=== PATIENT | male | born 1945 | race Caucasian/White ===

== ENCOUNTER 2016-10-07 19:37 | Inpatient (IN) | payer OTHER, MEDICAID ==
[~2016-10-07] VITALS: Ht 188 cm; Wt 94.8 kg
[2016-10-07 19:38] VITALS: BP_SYST 166
[2016-10-07] MEDS ORDERED: NACL 0.9% 1,000 ML IV ONE (20:03)
[2016-10-07] MEDS ORDERED: ONDANSETRON HCL 4 MG/2 ML VIAL IVP ONE (20:15)
[2016-10-07] MEDS ORDERED: ACETAMINOPHEN 650 MG SUPP.RECT RC ONE (20:15)
[2016-10-07] MEDS ORDERED: VANCOMYCIN HCL 1,000 MG in D5W 250 ML IV ONE (20:15)
[2016-10-07] MEDS ORDERED: PIPERACILLIN/TAZO 3.38 GM in D5W 50 ML IV ONE (20:15)
[2016-10-07] MEDS ORDERED: PIPERACILLIN/TAZOBACTAM 3.375 GM/VIAL (ZOSYN) IV ONE (20:25)
[2016-10-07] MEDS ORDERED: VANCOMYCIN HCL 1000 MG/VIAL IV ONE (20:26)
[2016-10-07 20:30] LABS: BILIRUBIN,URINE NEGATIVE (NEGATIVE); BLOOD, URINE NEGATIVE (NEGATIVE); CLARITY/URINE CLEAR (CLEAR); GLUCOSE,URINE NEGATIVE (NEGATIVE); KETONES,URINE NEGATIVE (NEGATIVE); LEUKOCYTE ESTERASE ,URINE NEGATIVE (NEGATIVE); NITRITE, URINE NEGATIVE (NEGATIVE); PH,URINE 5.5 (5.0-8.0); PROTEIN URINE TRACE (NEGATIVE); UROBILINOGEN,URINE 0.2 (0.2-1.0)
[2016-10-07 20:34] LABS: BASOPHILS # (AUTO) 0.3 K/uL (0.0-0.2); BASOPHILS % (AUTO) 1.6 % (0.0-2.0); EOSINOPHILS % (AUTO) 0.1 % (0.0-4.0); HEMATOCRIT 49.6 % (36-54); LYMPHOCYTES % (AUTO) 5.8 % (20.5-51.5); MEAN CORPUSCULAR HEMOGLOBIN 30 pg (27-31); MEAN CORPUSCULAR HGB CONC 32 % (32-36); MEAN CORPUSCULAR VOLUME 94 fL (79.0-98.0); MONOCYTES # (AUTO) 0.7 K/uL (0.0-1.0); MONOCYTES % (AUTO) 4.3 % (1.7-9.3); NEUTROPHILS # (AUTO) 14.8 K/uL (1.8-7.7); NEUTROPHILS % (AUTO) 88.2 % (40.0-70.0); PLATELET COUNT (AUTO) 326 K/uL (130-430); RED BLOOD CELL COUNT(AUTO) 5.29 MIL/uL (4.2-6.2); RED CELL DISTRIBUTION WIDTH 12.9 % (9.0-15.0); WHITE BLOOD COUNT (AUTO) 16.8 K/uL (4.8-10.8)
[2016-10-07 20:35] LABS: ANION GAP 9 (5-15); CALCIUM 10.4 mg/dL (8.4-11.0); CHLORIDE 103 mmol/L (98-107); CREATININE 0.85 mg/dL (0.55-1.30); GLUCOSE 173 mg/dL (70-99); POTASSIUM 3.5 mmol/L (3.5-5.1); SODIUM SERUM 139 mmol/L (136-145); UREA NITROGEN, BLOOD 30 mg/dL (8-21)
[2016-10-07 20:36] LABS: COLOR,URINE YELLOW (YELLOW)
[2016-10-07 20:39] LABS: ALANINE AMINOTRANSFERASE 33 U/L (12-78); ALBUMIN 3.5 g/dL (3.4-4.8); ASPARTATE AMINOTRANSFERASE 21 U/L (10-37); LIPASE 161 U/L (73-393); TOTAL BILIRUBIN 0.7 mg/dL (0.0-1.0); TOTAL PROTEIN, SERUM 7.7 g/dL (6.4-8.3)
[2016-10-07 20:44] LABS: INR 1.1 (0.80-1.20); PROTHROMBIN TIME 12.1 SECS (9.5-12.5)
[2016-10-07] MEDS ORDERED: TRAM50TA92 PO (20:58)
[2016-10-07] MEDS ORDERED: MAG-55 PO (20:58)
[2016-10-07] MEDS ORDERED: LORA1TAB PO (20:58)
[2016-10-07] MEDS ORDERED: MAGN400O4 PO (20:58)
[2016-10-07] MEDS ORDERED: HYDR-4037 PO (20:58)
[2016-10-07] MEDS ORDERED: DONE10TA44 PO (20:58)
[2016-10-07] MEDS ORDERED: RIVA10TA PO (20:58)
[2016-10-07] MEDS ORDERED: POTA20TA83 PO (20:58)
[2016-10-07] MEDS ORDERED: DOCU100T10 PO (20:58)
[2016-10-07] MEDS ORDERED: CAT.1 PO (20:58)
[2016-10-07] MEDS ORDERED: RISP0.5T2 PO (20:58)
[2016-10-07] MEDS ORDERED: INSU100V11 SQ (20:58)
[2016-10-07] MEDS ORDERED: MULT-1189 PO (20:58)
[2016-10-07] MEDS ORDERED: DILT360C30 PO (20:58)
[2016-10-07] MEDS ORDERED: SSNOVOLOG SUBCUT (20:58)
[2016-10-07] MEDS ORDERED: LISI-600 PO (20:58)
[2016-10-07] MEDS ORDERED: CARV12.548 PO (20:58)
[2016-10-07] MEDS ORDERED: GLU850 PO (20:58)
[2016-10-07 21:07] LABS: BACTERIA,URINE MANY /HPF (None Seen); HYALINE CASTS, URINE 0-10 /LPF (None Seen); MUCUS,URINE None Seen /LPF (None Seen); RBC,URINE NONE SEEN /HPF (0-3); WBC,URINE 0-3 /HPF (0-3)
[2016-10-07] MEDS ORDERED: ONDANSETRON HCL 4 MG/2 ML VIAL IVP PRN (22:15)
[2016-10-08] VITALS (7 sets, daily range): BP systolic 90–134
[2016-10-08] MEDS: D5NS 1,000 ML IV SCH ×2 (05:21→12:49)
[2016-10-08 07:06] LABS: BASOPHILS # (AUTO) 0.1 K/uL (0.0-0.2); BASOPHILS % (AUTO) 0.4 % (0.0-2.0); EOSINOPHILS % (AUTO) 0.1 % (0.0-4.0); HEMATOCRIT 40.3 % (36-54); HEMOGLOBIN 13.3 g/dL (14.0-18.0); LYMPHOCYTES # (AUTO) 1.2 K/uL (1.0-5.5); MEAN CORPUSCULAR HEMOGLOBIN 31 pg (27-31); MEAN CORPUSCULAR HGB CONC 33 % (32-36); MEAN CORPUSCULAR VOLUME 94 fL (79.0-98.0); MONOCYTES # (AUTO) 0.8 K/uL (0.0-1.0); MONOCYTES % (AUTO) 6.5 % (1.7-9.3); NEUTROPHILS # (AUTO) 10.9 K/uL (1.8-7.7); PLATELET COUNT (AUTO) 289 K/uL (130-430)
[2016-10-08 07:13] LABS: ANION GAP 9 (5-15); CALCIUM 9.6 mg/dL (8.4-11.0); CHLORIDE 105 mmol/L (98-107); CREATININE 1.39 mg/dL (0.55-1.30); GLUCOSE 144 mg/dL (70-99); POTASSIUM 3.3 mmol/L (3.5-5.1); SODIUM SERUM 140 mmol/L (136-145); UREA NITROGEN, BLOOD 36 mg/dL (8-21)
[2016-10-08] MEDS ORDERED: DEXTROSE 50%-WATER 50 ML DISP.SYRIN IVP PRN ×2 (08:15)
[2016-10-08] MEDS ORDERED: GLUCOSE 15 GM GEL (in 37.5 GM TUBE) PO PRN ×2 (08:15)
[2016-10-08] MEDS: cefTRIAXone 1 GM in D5W 50 ML IV SCH (09:00)
[2016-10-08] MEDS ORDERED: POTASSIUM CHLORIDE 40 MEQ, LIDOCAINE JECT 2% PF 100 MG 50 MG in NS 250 ML IV ONE (09:15)
[2016-10-08] MEDS ORDERED: MAGNESIUM SULFATE 50 ML IV PRN (09:30)
[2016-10-08] MEDS ORDERED: ACETAMINOPHEN 325 MG TABLET PO PRN (09:30)
[2016-10-08] MEDS ORDERED: POTASSIUM CHLORIDE 10 MEQ TAB.PRT.SR PO PRN (09:30)
[2016-10-08] MEDS ORDERED: ZOLPIDEM TARTRATE 5 MG TABLET PO PRN (09:30)
[2016-10-08] MEDS ORDERED: DOCUSATE SODIUM 100 MG CAPSULE PO PRN (09:30)
[2016-10-08] MEDS ORDERED: MORPHINE 2 MG/ML INJ. SYRINGE IVP PRN (09:30)
[2016-10-08] MEDS ORDERED: GASTROGRAFIN 120 ML ONE (12:49)
[2016-10-08] MEDS: metroNIDAZOLE 500 mg/NS 100 ML IV SCH ×2 (14:00→21:35)
[2016-10-09] VITALS (7 sets, daily range): BP systolic 124–166
[2016-10-09] MEDS: D5NS 1,000 ML IV SCH ×2 (04:40→21:35)
[2016-10-09] MEDS: metroNIDAZOLE 500 mg/NS 100 ML IV SCH ×3 (05:20→21:41)
[2016-10-09 08:00] LABS: BASOPHILS % (AUTO) 0.3 % (0.0-2.0); EOSINOPHILS # (AUTO) 0.1 K/uL (0.0-0.4); EOSINOPHILS % (AUTO) 1.2 % (0.0-4.0); HEMATOCRIT 40.1 % (36-54); HEMOGLOBIN 13.3 g/dL (14.0-18.0); LYMPHOCYTES % (AUTO) 9.5 % (20.5-51.5); MEAN CORPUSCULAR HEMOGLOBIN 31 pg (27-31); MEAN CORPUSCULAR HGB CONC 33 % (32-36); MEAN CORPUSCULAR VOLUME 94 fL (79.0-98.0); MONOCYTES # (AUTO) 0.7 K/uL (0.0-1.0); MONOCYTES % (AUTO) 6.8 % (1.7-9.3); NEUTROPHILS # (AUTO) 9.1 K/uL (1.8-7.7); NEUTROPHILS % (AUTO) 82.2 % (40.0-70.0); PLATELET COUNT (AUTO) 232 K/uL (130-430); RED BLOOD CELL COUNT(AUTO) 4.29 MIL/uL (4.2-6.2); RED CELL DISTRIBUTION WIDTH 12.9 % (9.0-15.0); WHITE BLOOD COUNT (AUTO) 10.9 K/uL (4.8-10.8)
[2016-10-09 08:15] LABS: ANION GAP 6 (5-15); CALCIUM 8.8 mg/dL (8.4-11.0); CHLORIDE 114 mmol/L (98-107); CREATININE 0.86 mg/dL (0.55-1.30); GLUCOSE 144 mg/dL (70-99); SODIUM SERUM 148 mmol/L (136-145); UREA NITROGEN, BLOOD 26 mg/dL (8-21)
[2016-10-09 08:23] LABS: POTASSIUM 2.5 mmol/L (3.5-5.1)
[2016-10-09] MEDS ORDERED: POTASSIUM CHLORIDE 40 MEQ, LIDOCAINE JECT 2% PF 100 MG 50 MG in NS 250 ML IV ONE ×2 (08:30→14:00)
[2016-10-09] MEDS: cefTRIAXone 1 GM in D5W 50 ML IV SCH (08:42)
[2016-10-09] MEDS: POTASSIUM CHLORIDE 20 MEQ/PKT PACKET PO PRN (08:43)
[2016-10-09] MEDS ORDERED: GOLYTELY / COLYTE SOLUTION 4 LITERS NG ONE (18:00)
[2016-10-09] MEDS ORDERED: MAGNESIUM CITRATE 300 ML ORAL SOLUTION NG ONE (19:00)
[2016-10-09] MEDS: METOPROLOL TARTRATE 50 MG TABLET PO SCH (21:38)
[2016-10-10 04:16] VITALS: BP_SYST 133
[2016-10-10] MEDS: metroNIDAZOLE 500 mg/NS 100 ML IV SCH ×3 (06:02→22:11)
[2016-10-10 06:23] LABS: BASOPHILS % (AUTO) 0.2 % (0.0-2.0); EOSINOPHILS # (AUTO) 0.1 K/uL (0.0-0.4); EOSINOPHILS % (AUTO) 0.6 % (0.0-4.0); HEMATOCRIT 42.5 % (36-54); HEMOGLOBIN 13.7 g/dL (14.0-18.0); MEAN CORPUSCULAR HEMOGLOBIN 31 pg (27-31); MEAN CORPUSCULAR HGB CONC 32 % (32-36); MEAN CORPUSCULAR VOLUME 95 fL (79.0-98.0); MONOCYTES # (AUTO) 0.8 K/uL (0.0-1.0); MONOCYTES % (AUTO) 7.5 % (1.7-9.3); NEUTROPHILS # (AUTO) 9.3 K/uL (1.8-7.7); NEUTROPHILS % (AUTO) 82.7 % (40.0-70.0); PLATELET COUNT (AUTO) 267 K/uL (130-430); RED BLOOD CELL COUNT(AUTO) 4.46 MIL/uL (4.2-6.2); WHITE BLOOD COUNT (AUTO) 11.2 K/uL (4.8-10.8)
[2016-10-10 06:24] LABS: ANION GAP 3 (5-15); CALCIUM 9.1 mg/dL (8.4-11.0); CREATININE 0.93 mg/dL (0.55-1.30); GLUCOSE 162 mg/dL (70-99); SODIUM SERUM 152 mmol/L (136-145); UREA NITROGEN, BLOOD 19 mg/dL (8-21)
[2016-10-10] MEDS ORDERED: MIDAZOLAM HCL 5 MG/5 ML VIAL ONE ×2 (06:35→06:36)
[2016-10-10] MEDS ORDERED: MEPERIDINE HCL/PF 100 MG/ML AMP ONE (06:35)
[2016-10-10] MEDS ORDERED: SIMETHICONE 40 MG/0.6 ML ML ONE (06:36)
[2016-10-10 06:43] LABS: CHLORIDE 120 mmol/L (98-107)
[2016-10-10 06:45] LABS: POTASSIUM 2.9 mmol/L (3.5-5.1)
[2016-10-10] MEDS ORDERED: POTASSIUM CHLORIDE 40 MEQ in 0.45% NS 250 ML IV ONE (07:00)
[2016-10-10] MEDS: D5NS 1,000 ML IV SCH ×2 (08:06→22:03)
[2016-10-10] MEDS: cefTRIAXone 1 GM in D5W 50 ML IV SCH (08:06)
[2016-10-10] MEDS: METOPROLOL TARTRATE 50 MG TABLET PO SCH ×2 (08:07→22:12)
[2016-10-10 08:10] VITALS: BP_SYST 176
[2016-10-10] MEDS ORDERED: MEPERIDINE HCL/PF 100 MG/ML AMP IV ONE (08:24)
[2016-10-10] MEDS ORDERED: MIDAZOLAM HCL 5 MG/5 ML VIAL IVP ONE (08:26)
[2016-10-10 09:40] VITALS: BP_SYST 145
[2016-10-10 12:44] VITALS: BP_SYST 157
[2016-10-10] MEDS: METOCLOPRAMIDE HCL 10 MG/2 ML VIAL IVP SCH ×2 (13:23→22:12)
[2016-10-10 16:20] VITALS: BP_SYST 160
[2016-10-10] MEDS ORDERED: cloNIDine HCL 0.1 MG TABLET PO PRN (16:30)
[2016-10-10] MEDS: INSULIN REGULAR, HUMAN 100 UNITS/ML, 10 ML VIAL (novoLIN R) SUBCUT PRN (17:20)
[2016-10-10 21:57] VITALS: BP_SYST 157
[2016-10-11 00:34] VITALS: BP_SYST 146
[2016-10-11] MEDS: INSULIN REGULAR, HUMAN 100 UNITS/ML, 10 ML VIAL (novoLIN R) SUBCUT PRN ×2 (01:12→11:45)
[2016-10-11 04:48] VITALS: BP_SYST 122
[2016-10-11 04:51] VITALS: BP_SYST 141
[2016-10-11] MEDS: metroNIDAZOLE 500 mg/NS 100 ML IV SCH ×3 (05:46→22:25)
[2016-10-11] MEDS: METOCLOPRAMIDE HCL 10 MG/2 ML VIAL IVP SCH ×3 (05:51→22:25)
[2016-10-11 07:18] LABS: BASOPHILS # (AUTO) 0.1 K/uL (0.0-0.2); BASOPHILS % (AUTO) 0.5 % (0.0-2.0); EOSINOPHILS % (AUTO) 0.2 % (0.0-4.0); HEMOGLOBIN 13.2 g/dL (14.0-18.0); LYMPHOCYTES % (AUTO) 8.7 % (20.5-51.5); MEAN CORPUSCULAR HEMOGLOBIN 31 pg (27-31); MEAN CORPUSCULAR HGB CONC 33 % (32-36); MEAN CORPUSCULAR VOLUME 94 fL (79.0-98.0); MONOCYTES % (AUTO) 8.4 % (1.7-9.3); NEUTROPHILS # (AUTO) 9.5 K/uL (1.8-7.7); NEUTROPHILS % (AUTO) 82.2 % (40.0-70.0); PLATELET COUNT (AUTO) 239 K/uL (130-430); RED BLOOD CELL COUNT(AUTO) 4.25 MIL/uL (4.2-6.2); RED CELL DISTRIBUTION WIDTH 13.1 % (9.0-15.0); WHITE BLOOD COUNT (AUTO) 11.6 K/uL (4.8-10.8)
[2016-10-11 07:41] LABS: ANION GAP 6 (5-15); CALCIUM 9.1 mg/dL (8.4-11.0); CREATININE 0.83 mg/dL (0.55-1.30); GLUCOSE 117 mg/dL (70-99); SODIUM SERUM 151 mmol/L (136-145); UREA NITROGEN, BLOOD 17 mg/dL (8-21)
[2016-10-11 08:06] LABS: CHLORIDE 120 mmol/L (98-107)
[2016-10-11 08:09] LABS: POTASSIUM 2.6 mmol/L (3.5-5.1)
[2016-10-11] MEDS: POTASSIUM CHLORIDE 40 MEQ in NS 250 ML IV SCH ×2 (10:51→16:09)
[2016-10-11] MEDS: cefTRIAXone 1 GM in D5W 50 ML IV SCH (10:51)
[2016-10-11] MEDS: METOPROLOL TARTRATE 50 MG TABLET PO SCH ×2 (10:53→22:24)
[2016-10-11] MEDS: D5/0.45 NS 1,000 ML IV SCH (10:54)
[2016-10-11 11:50] VITALS: BP_SYST 165
[2016-10-11] MEDS: ONDANSETRON HCL 4 MG/2 ML VIAL IVP PRN (12:37)
[2016-10-11 15:54] VITALS: BP_SYST 166
[2016-10-11 20:00] VITALS: BP_SYST 137
[2016-10-11] MEDS: POLYETHYLENE GLYCOL 3350, 17 GM/ POWD.PACK PO SCH (22:25)
[2016-10-12] VITALS (7 sets, daily range): BP systolic 106–147
[2016-10-12] MEDS: INSULIN REGULAR, HUMAN 100 UNITS/ML, 10 ML VIAL (novoLIN R) SUBCUT PRN ×3 (00:34→17:19)
[2016-10-12] MEDS: D5/0.45 NS 1,000 ML IV SCH ×2 (03:08→18:55)
[2016-10-12 06:04] LABS: ANION GAP 7 (5-15); CHLORIDE 115 mmol/L (98-107); CREATININE 0.77 mg/dL (0.55-1.30); GLUCOSE 132 mg/dL (70-99); SODIUM SERUM 147 mmol/L (136-145); UREA NITROGEN, BLOOD 13 mg/dL (8-21)
[2016-10-12] MEDS: METOCLOPRAMIDE HCL 10 MG/2 ML VIAL IVP SCH ×3 (06:23→17:19)
[2016-10-12] MEDS: metroNIDAZOLE 500 mg/NS 100 ML IV SCH ×3 (06:23→21:35)
[2016-10-12 07:12] LABS: BASOPHILS # (AUTO) 0.1 K/uL (0.0-0.2); BASOPHILS % (AUTO) 0.6 % (0.0-2.0); EOSINOPHILS # (AUTO) 0.2 K/uL (0.0-0.4); EOSINOPHILS % (AUTO) 1.8 % (0.0-4.0); HEMOGLOBIN 13.3 g/dL (14.0-18.0); LYMPHOCYTES # (AUTO) 1.5 K/uL (1.0-5.5); LYMPHOCYTES % (AUTO) 12.8 % (20.5-51.5); MEAN CORPUSCULAR HEMOGLOBIN 31 pg (27-31); MEAN CORPUSCULAR HGB CONC 33 % (32-36); MEAN CORPUSCULAR VOLUME 94 fL (79.0-98.0); MONOCYTES # (AUTO) 0.8 K/uL (0.0-1.0); NEUTROPHILS # (AUTO) 9.2 K/uL (1.8-7.7); NEUTROPHILS % (AUTO) 77.8 % (40.0-70.0); RED BLOOD CELL COUNT(AUTO) 4.25 MIL/uL (4.2-6.2); WHITE BLOOD COUNT (AUTO) 11.9 K/uL (4.8-10.8)
[2016-10-12] MEDS: cefTRIAXone 1 GM in D5W 50 ML IV SCH (08:13)
[2016-10-12] MEDS: POLYETHYLENE GLYCOL 3350, 17 GM/ POWD.PACK PO SCH ×2 (08:14→21:34)
[2016-10-12] MEDS: ONDANSETRON HCL 4 MG/2 ML VIAL IVP PRN (08:14)
[2016-10-12] MEDS: METOPROLOL TARTRATE 50 MG TABLET PO SCH ×2 (08:15→21:35)
[2016-10-12] MEDS: MORPHINE 2 MG/ML INJ. SYRINGE IVP PRN (09:36)
[2016-10-12] MEDS ORDERED: BISACODYL 10 MG/SUPPOSITORY RC PRN (10:00)
[2016-10-12 10:04] LABS: PLATELET COUNT (AUTO) 218 K/uL (130-430)
[2016-10-12] MEDS ORDERED: POTASSIUM CHLORIDE 40 MEQ, LIDOCAINE JECT 2% PF 100 MG 50 MG in NS 250 ML IV ONE (10:30)
[2016-10-13] MEDS: METOCLOPRAMIDE HCL 10 MG/2 ML VIAL IVP SCH ×5 (00:34→23:33)
[2016-10-13 03:40] VITALS: BP_SYST 136
[2016-10-13] MEDS: metroNIDAZOLE 500 mg/NS 100 ML IV SCH (06:33)
[2016-10-13] MEDS: INSULIN REGULAR, HUMAN 100 UNITS/ML, 10 ML VIAL (novoLIN R) SUBCUT PRN ×4 (06:53→23:50)
[2016-10-13 07:42] LABS: BASOPHILS % (AUTO) 0.3 % (0.0-2.0); EOSINOPHILS # (AUTO) 0.1 K/uL (0.0-0.4); EOSINOPHILS % (AUTO) 0.4 % (0.0-4.0); HEMATOCRIT 41.7 % (36-54); HEMOGLOBIN 13.7 g/dL (14.0-18.0); LYMPHOCYTES # (AUTO) 1.4 K/uL (1.0-5.5); LYMPHOCYTES % (AUTO) 9.9 % (20.5-51.5); MEAN CORPUSCULAR HEMOGLOBIN 31 pg (27-31); MEAN CORPUSCULAR HGB CONC 33 % (32-36); MEAN CORPUSCULAR VOLUME 94 fL (79.0-98.0); MONOCYTES # (AUTO) 0.9 K/uL (0.0-1.0); MONOCYTES % (AUTO) 6.3 % (1.7-9.3); NEUTROPHILS # (AUTO) 11.9 K/uL (1.8-7.7); NEUTROPHILS % (AUTO) 83.1 % (40.0-70.0); PLATELET COUNT (AUTO) 179 K/uL (130-430); RED BLOOD CELL COUNT(AUTO) 4.43 MIL/uL (4.2-6.2); RED CELL DISTRIBUTION WIDTH 12.7 % (9.0-15.0); WHITE BLOOD COUNT (AUTO) 14.3 K/uL (4.8-10.8)
[2016-10-13 07:46] LABS: ANION GAP 5 (5-15); CALCIUM 9.2 mg/dL (8.4-11.0); CHLORIDE 112 mmol/L (98-107); CREATININE 0.92 mg/dL (0.55-1.30); GLUCOSE 185 mg/dL (70-99); SODIUM SERUM 143 mmol/L (136-145); UREA NITROGEN, BLOOD 15 mg/dL (8-21)
[2016-10-13 08:08] LABS: POTASSIUM 2.9 mmol/L (3.5-5.1)
[2016-10-13] MEDS: LORazepam 2 MG/ML VIAL IVP PRN (09:04)
[2016-10-13] MEDS: D5/0.45 NS 1,000 ML IV SCH (10:24)
[2016-10-13] MEDS: METOPROLOL TARTRATE 50 MG TABLET PO SCH ×2 (10:25→22:10)
[2016-10-13] MEDS: POLYETHYLENE GLYCOL 3350, 17 GM/ POWD.PACK PO SCH ×2 (10:26→22:18)
[2016-10-13] MEDS: cefTRIAXone 1 GM in D5W 50 ML IV SCH (10:26)
[2016-10-13] MEDS: ONDANSETRON HCL 4 MG/2 ML VIAL IVP PRN (10:26)
[2016-10-13 12:53] VITALS: BP_SYST 142
[2016-10-13] MEDS: PIPERACILLIN/TAZO 4.5GM/DEX-IS 100 ML IV SCH ×2 (15:55→22:09)
[2016-10-13] MEDS: POTASSIUM CHLORIDE 40 MEQ, LIDOCAINE JECT 2% PF 100 MG 50 MG in NS 250 ML IV PRN (15:56)
[2016-10-13 16:47] VITALS: BP_SYST 145
[2016-10-13 20:14] VITALS: BP_SYST 149
[2016-10-13] MEDS: BISACODYL 10 MG/SUPPOSITORY RC SCH (22:17)
[2016-10-14 00:33] VITALS: BP_SYST 136
[2016-10-14] MEDS: ONDANSETRON HCL 4 MG/2 ML VIAL IVP PRN (01:18)
[2016-10-14] MEDS: LORazepam 2 MG/ML VIAL IVP PRN (01:40)
[2016-10-14] MEDS: D5/0.45 NS 1,000 ML IV SCH ×2 (03:04→14:15)
[2016-10-14 05:13] VITALS: BP_SYST 122
[2016-10-14] MEDS: PIPERACILLIN/TAZO 4.5GM/DEX-IS 100 ML IV SCH ×3 (05:19→22:53)
[2016-10-14] MEDS: INSULIN REGULAR, HUMAN 100 UNITS/ML, 10 ML VIAL (novoLIN R) SUBCUT PRN ×2 (05:24→18:05)
[2016-10-14] MEDS: METOCLOPRAMIDE HCL 10 MG/2 ML VIAL IVP SCH ×3 (06:26→18:03)
[2016-10-14 06:44] LABS: BASOPHILS # (AUTO) 0.1 K/uL (0.0-0.2); BASOPHILS % (AUTO) 0.4 % (0.0-2.0); EOSINOPHILS % (AUTO) 0.1 % (0.0-4.0); HEMATOCRIT 40.6 % (36-54); HEMOGLOBIN 13.3 g/dL (14.0-18.0); LYMPHOCYTES # (AUTO) 1.3 K/uL (1.0-5.5); LYMPHOCYTES % (AUTO) 9.3 % (20.5-51.5); MEAN CORPUSCULAR HEMOGLOBIN 31 pg (27-31); MEAN CORPUSCULAR HGB CONC 33 % (32-36); MEAN CORPUSCULAR VOLUME 94 fL (79.0-98.0); MONOCYTES # (AUTO) 1.1 K/uL (0.0-1.0); MONOCYTES % (AUTO) 7.8 % (1.7-9.3); NEUTROPHILS # (AUTO) 11.4 K/uL (1.8-7.7); NEUTROPHILS % (AUTO) 82.4 % (40.0-70.0); PLATELET COUNT (AUTO) 157 K/uL (130-430); RED BLOOD CELL COUNT(AUTO) 4.34 MIL/uL (4.2-6.2); RED CELL DISTRIBUTION WIDTH 13.2 % (9.0-15.0); WHITE BLOOD COUNT (AUTO) 13.9 K/uL (4.8-10.8)
[2016-10-14 07:01] LABS: ANION GAP 5 (5-15); CALCIUM 8.8 mg/dL (8.4-11.0); CHLORIDE 112 mmol/L (98-107); CREATININE 0.88 mg/dL (0.55-1.30); GLUCOSE 158 mg/dL (70-99); SODIUM SERUM 141 mmol/L (136-145); UREA NITROGEN, BLOOD 14 mg/dL (8-21)
[2016-10-14 07:48] LABS: POTASSIUM 2.6 mmol/L (3.5-5.1)
[2016-10-14 08:00] VITALS: BP_SYST 129
[2016-10-14] MEDS: BISACODYL 10 MG/SUPPOSITORY RC SCH (08:08)
[2016-10-14] MEDS: POLYETHYLENE GLYCOL 3350, 17 GM/ POWD.PACK PO SCH ×2 (08:08→21:58)
[2016-10-14] MEDS: POTASSIUM CHLORIDE 20 MEQ/PKT PACKET PO PRN (08:08)
[2016-10-14] MEDS: METOPROLOL TARTRATE 50 MG TABLET PO SCH ×2 (08:09→22:03)
[2016-10-14 16:16] VITALS: BP_SYST 125
[2016-10-14 22:04] VITALS: BP_SYST 112
[2016-10-14 23:52] VITALS: BP_SYST 110
[2016-10-15] MEDS: METOCLOPRAMIDE HCL 10 MG/2 ML VIAL IVP SCH ×5 (00:08→23:57)
[2016-10-15] MEDS: INSULIN REGULAR, HUMAN 100 UNITS/ML, 10 ML VIAL (novoLIN R) SUBCUT PRN ×4 (00:12→17:27)
[2016-10-15] MEDS: D5/0.45 NS 1,000 ML IV SCH ×2 (00:39→18:33)
[2016-10-15 04:12] VITALS: BP_SYST 115
[2016-10-15] MEDS: PIPERACILLIN/TAZO 4.5GM/DEX-IS 100 ML IV SCH ×2 (05:38→13:52)
[2016-10-15 07:01] LABS: ANION GAP 5 (5-15); CALCIUM 8.8 mg/dL (8.4-11.0); CHLORIDE 113 mmol/L (98-107); CREATININE 0.84 mg/dL (0.55-1.30); GLUCOSE 163 mg/dL (70-99); SODIUM SERUM 142 mmol/L (136-145); UREA NITROGEN, BLOOD 17 mg/dL (8-21)
[2016-10-15 07:06] LABS: BASOPHILS # (AUTO) 0.1 K/uL (0.0-0.2); BASOPHILS % (AUTO) 0.8 % (0.0-2.0); EOSINOPHILS # (AUTO) 0.2 K/uL (0.0-0.4); EOSINOPHILS % (AUTO) 1.7 % (0.0-4.0); HEMATOCRIT 39.5 % (36-54); HEMOGLOBIN 13.1 g/dL (14.0-18.0); LYMPHOCYTES # (AUTO) 1.3 K/uL (1.0-5.5); LYMPHOCYTES % (AUTO) 11.2 % (20.5-51.5); MEAN CORPUSCULAR HEMOGLOBIN 31 pg (27-31); MEAN CORPUSCULAR HGB CONC 33 % (32-36); MEAN CORPUSCULAR VOLUME 93 fL (79.0-98.0); MONOCYTES # (AUTO) 0.7 K/uL (0.0-1.0); NEUTROPHILS # (AUTO) 9.2 K/uL (1.8-7.7); NEUTROPHILS % (AUTO) 80.3 % (40.0-70.0); PLATELET COUNT (AUTO) 145 K/uL (130-430); RED BLOOD CELL COUNT(AUTO) 4.23 MIL/uL (4.2-6.2); RED CELL DISTRIBUTION WIDTH 12.8 % (9.0-15.0); WHITE BLOOD COUNT (AUTO) 11.5 K/uL (4.8-10.8)
[2016-10-15 07:29] LABS: POTASSIUM 2.2 mmol/L (3.5-5.1)
[2016-10-15 08:51] VITALS: BP_SYST 133
[2016-10-15] MEDS: POLYETHYLENE GLYCOL 3350, 17 GM/ POWD.PACK PO SCH ×2 (09:00→21:00)
[2016-10-15] MEDS: BISACODYL 10 MG/SUPPOSITORY RC SCH (09:00)
[2016-10-15] MEDS: METOPROLOL TARTRATE 50 MG TABLET PO SCH ×2 (09:20→21:40)
[2016-10-15] MEDS: POTASSIUM CHLORIDE 20 MEQ/PKT PACKET PO PRN (09:21)
[2016-10-15] MEDS: POTASSIUM CHLORIDE 40 MEQ, LIDOCAINE JECT 2% PF 100 MG 50 MG in NS 250 ML IV PRN ×2 (09:47→18:46)
[2016-10-15 11:27] VITALS: BP_SYST 129
[2016-10-15 15:30] VITALS: BP_SYST 131
[2016-10-15 16:25] LABS: ANION GAP 6 (5-15); CALCIUM 8.5 mg/dL (8.4-11.0); CHLORIDE 112 mmol/L (98-107); SODIUM SERUM 139 mmol/L (136-145)
[2016-10-15 16:35] LABS: CREATININE 0.81 mg/dL (0.55-1.30); GLUCOSE 196 mg/dL (70-99); UREA NITROGEN, BLOOD 18 mg/dL (8-21)
[2016-10-15 16:48] LABS: POTASSIUM 2.9 mmol/L (3.5-5.1)
[2016-10-15] MEDS ORDERED: cefTRIAXone 1 GM VIAL ONE (21:42)
[2016-10-15] MEDS ORDERED: cefTRIAXone 2 GM VIAL ONE (21:46)
[2016-10-15] MEDS: MORPHINE 2 MG/ML INJ. SYRINGE IVP PRN (22:04)
[2016-10-16] VITALS (7 sets, daily range): BP systolic 147–159
[2016-10-16] MEDS: INSULIN REGULAR, HUMAN 100 UNITS/ML, 10 ML VIAL (novoLIN R) SUBCUT PRN ×4 (00:06→18:00)
[2016-10-16] MEDS: METOCLOPRAMIDE HCL 10 MG/2 ML VIAL IVP SCH ×3 (06:22→17:52)
[2016-10-16 06:29] LABS: BASOPHILS % (AUTO) 0.1 % (0.0-2.0); EOSINOPHILS # (AUTO) 0.1 K/uL (0.0-0.4); EOSINOPHILS % (AUTO) 0.7 % (0.0-4.0); HEMATOCRIT 39.8 % (36-54); HEMOGLOBIN 13.1 g/dL (14.0-18.0); LYMPHOCYTES # (AUTO) 0.8 K/uL (1.0-5.5); LYMPHOCYTES % (AUTO) 5.2 % (20.5-51.5); MEAN CORPUSCULAR HEMOGLOBIN 31 pg (27-31); MEAN CORPUSCULAR HGB CONC 33 % (32-36); MEAN CORPUSCULAR VOLUME 94 fL (79.0-98.0); MONOCYTES # (AUTO) 0.6 K/uL (0.0-1.0); MONOCYTES % (AUTO) 3.8 % (1.7-9.3); NEUTROPHILS % (AUTO) 90.2 % (40.0-70.0); PLATELET COUNT (AUTO) 175 K/uL (130-430); RED BLOOD CELL COUNT(AUTO) 4.22 MIL/uL (4.2-6.2); WHITE BLOOD COUNT (AUTO) 15.5 K/uL (4.8-10.8)
[2016-10-16 07:00] LABS: ANION GAP 8 (5-15); CALCIUM 8.8 mg/dL (8.4-11.0); CHLORIDE 111 mmol/L (98-107); CREATININE 0.77 mg/dL (0.55-1.30); GLUCOSE 165 mg/dL (70-99); SODIUM SERUM 142 mmol/L (136-145); UREA NITROGEN, BLOOD 13 mg/dL (8-21)
[2016-10-16 07:11] LABS: POTASSIUM 2.9 mmol/L (3.5-5.1)
[2016-10-16] MEDS: POTASSIUM CHLORIDE 20 MEQ/PKT PACKET PO PRN ×2 (08:48→17:56)
[2016-10-16] MEDS: METOPROLOL TARTRATE 50 MG TABLET PO SCH (08:49)
[2016-10-16] MEDS ORDERED: POLYETHYLENE GLYCOL 3350, 17 GM/ POWD.PACK PO SCH (09:00)
[2016-10-16] MEDS: MORPHINE 2 MG/ML INJ. SYRINGE IVP PRN ×2 (10:24→18:51)
[2016-10-16] MEDS: ONDANSETRON HCL 4 MG/2 ML VIAL IVP PRN (13:05)
[2016-10-16] MEDS ORDERED: metroNIDAZOLE 250 mg/NS 50 ML IV SCH (14:00)
[2016-10-16] MEDS ORDERED: COMMUNICATION ORDER XX ONE (16:00)
[2016-10-16] MEDS ORDERED: METR500T PO (16:40)
== END 2016-10-16 20:08 | DRG 871 ==
LOC: SED 19:37 → SMU 22:04
PROVIDERS: ADMIT General Practice; ATTEND General Practice
PROC: 0DBL8ZZ Excision of Transverse Colon, Via Natural or Artificial Opening Endoscopic (ICD-10-PCS; principal; 2016-10-10 08:30)
DX: A41.9 Sepsis, unspecified organism (principal); N17.0 Acute kidney failure with tubular necrosis; G93.41 Metabolic encephalopathy; K56.60 Unspecified intestinal obstruction; E87.0 Hyperosmolality and hypernatremia; K59.39 Other megacolon; K56.0 Paralytic ileus; N39.0 Urinary tract infection, site not specified; A04.9 Bacterial intestinal infection, unspecified; E11.9 Type 2 diabetes mellitus without complications; N28.1 Cyst of kidney, acquired; K64.8 Other hemorrhoids; N20.0 Calculus of kidney; D12.3 Benign neoplasm of transverse colon; K57.90 Diverticulosis of intestine, part unspecified, without perforation or abscess without bleeding; G30.8 Other Alzheimer's disease; F02.80 Dementia in other diseases classified elsewhere, unspecified severity, without behavioral disturbance, psychotic disturbance, mood disturbance, and anxiety; I10 Essential (primary) hypertension; I48.91 Unspecified atrial fibrillation; E87.6 Hypokalemia; Z88.5 Allergy status to narcotic agent; Z79.899 Other long term (current) drug therapy; Z79.01 Long term (current) use of anticoagulants; Z85.46 Personal history of malignant neoplasm of prostate; Z92.3 Personal history of irradiation
CPT/HCPCS: 36415; 45380; 71010; 74000-TC; 74250-TC; 74270-TC; 80048; 80053; 81000-TC; 82962; 83605; 83690-TC; 83735-TC; 84484; 85025; 85610-TC; 85730-TC; 87040-TC; 87081; 87086; 88305; 92610-GN; 93005; 96365; 96366; 96367; 96375; 97110-GP; 97116-GP; 97530-GP; 99285; J0696; J1815; J2060; J2175; J2250; J2270; J2405; J2543; J2765; J3370; J3475; J3480; J3490; J7030; J7042; J7050; J7060; Q9963